=== PATIENT | female | born 1990 | race Caucasian/White ===

== ENCOUNTER 2016-12-15 14:09 | Emergency (ER) | payer BC ==
[2016-12-15 14:20] VITALS: BP 120/83
--- NOTE | 2016-12-15 14:29 | UC ---
Back Pain HPI - HPI Summary HPI Summary: pt reports she was moving heavy furniture and was climbing a low ladder and fell off and hit right side of low back X 4 days ago. Pt states she fell onto to right side of low back. She woke 12/12/16 with low back pain and stiffness and c/o right side sciatic pain. denies numbness, tingling loss of bowel or bladder control - History of Current Complaint Stated Complaint: LOWER BACK INJURY Time Seen by Provider: 12/15/16 14:11 Hx Obtained From: Patient Hx Last Menstrual Period: 11/16/14 ?: No Onset/Duration: Sudden Onset, Lasting Days Timing: Constant Severity Initially: Mild Severity Currently: Mild Character: Dull, Aching, Stiffness Aggravating: Movement Alleviating: Rest, Position Associated Signs And Symptoms: Positive: Negative - Allergies/Home Medications Allergies/Adverse Reactions: Allergies Allergy/AdvReac Type Severity Reaction Status Date / Time Amoxicillin Allergy Intermediate Rash Verified 12/15/16 14:20 Home Medications: Home Medications Norethindrone & Eth Estradiol [Nortrel 1/35 1-35 mg-Mcg] 1 tab PO DAILY [History Confirmed 12/15/16] PMH/Surg Hx/FS Hx/Imm Hx Previously Healthy: Yes Endocrine History Of: Denies: Diabetes, Thyroid Disease Cardiovascular History Of: Denies: Cardiac Disorders Respiratory History Of: Reports: Asthma GI/ History Of: Denies: Gastroesophageal Reflux, Ulcer, Gastrointestinal Bleed, Gall Bladder Disease, Kidney Stones, Diverticulitis, Renal Disease, Urosepsis Neurological History Of: Denies: TIA, CVA, Dementia, Seizures, Migraine Psychological History Of: Denies: Anxiety, Depression, Bipolar Disorder, Schizophrenia, Post Traumatic Stress Disorder Cancer History Of: Denies: Lung Cancer, Colorectal Cancer, Breast Cancer, Prostate Cancer, Cervical Cancer - Surgical History Surgical History: Yes Surgery Procedure, Year, and Place: C SECTION 2011 - Family History Known Family History: Positive: Other - positive for FMH for URI - Social History Lives: With Family Alcohol Use: None Substance Use Type: None Smoking Status (MU): Never Smoked Tobacco - Immunization History Most Recent Influenza Vaccination: FALL 2012 Review of Systems Constitutional: Negative Skin: Negative Eyes: Negative ENT: Negative Respiratory: Negative Cardiovascular: Negative Gastrointestinal: Negative Genitourinary: Negative Motor: Negative Neurovascular: Negative Musculoskeletal: Myalgia Neurological: Negative Psychological: Negative All Other Systems Reviewed And Are Negative: Yes Physical Exam Triage Information Reviewed: Yes Appearance: Pain Distress - mild Vital Signs: Initial Vital Signs Temp 98.2 F 12/15/16 14:16 Pulse 88 12/15/16 14:16 Resp 16 12/15/16 14:16 BP 120/83 12/15/16 14:16 Pulse Ox 100 12/15/16 14:16 Eye Exam: Normal Neck exam: Normal Respiratory Exam: Normal Cardiovascular Exam: Normal Musculoskeletal Exam: Other Musculoskeletal: Positive: ROM Limited @ - low back Neurological Exam: Normal Psychological Exam: Normal Skin Exam: Normal Back Pain Course/Dx - Differential Dx/Diagnosis Differential Diagnosis/HQI/PQRI: Herniated Disc, Strain, Other - low back strain Provider Diagnoses: low back strain Discharge - Discharge Plan Condition: Stable Disposition: HOME Prescriptions: Cyclobenzaprine TAB* [Flexeril 10 MG TAB*] 10 mg PO TID PRN #15 tab PRN Reason: Pain Ibuprofen TAB* [Motrin TAB* 800 MG] 800 mg PO Q8HR #15 tab predniSONE TAB* [Deltasone TAB*] 20 mg PO DAILY #4 tab Patient Education Materials: Acute Low Back Pain (ED), Lower Back Exercises (ED ) Forms: *Work Release Referrals: Nadine Elizondo MD [Primary Care Provider] - Additional Instructions: Please follow up with your PCP or return to clinic
== END 2016-12-15 14:46 | disposition home or self-care (01) ==
LOC: UCCORT 14:09
DX: S39.012A Strain of muscle, fascia and tendon of lower back, initial encounter (principal); W11.XXXA Fall on and from ladder, initial encounter; Y93.9 Activity, unspecified; Y92.9 Unspecified place or not applicable; Z88.1 Allergy status to other antibiotic agents
CPT/HCPCS: 99212; G0463

== ENCOUNTER 2016-12-21 08:03 | Emergency (ER) | payer BC ==
[2016-12-21 08:45] VITALS: BP 143/94
--- NOTE | 2016-12-21 09:34 | RAD ---
Indication: Traumatic injury/fall December 12, 2016 with continued back pain radiating to the LEFT leg. Comparison: No relevant prior exams available on the [facility] P[facility]. Technique: AP and lateral views lumbar sacral spine. Report: Normal lumbar lordosis without spondylolisthesis at any level. Variant unfused anterior superior ring apophysis at L4 without concern. Negative for fracture. Moderate L5-S1 disc space narrowing and facet joint osteoarthritis. The remaining disc spaces are normal. Unremarkable paraspinal soft tissue contours. IMPRESSION: L5-S1 degenerative spondylosis and facet joint osteoarthritis.
--- NOTE | 2016-12-21 13:09 | UC ---
Back Pain HPI - HPI Summary HPI Summary: MOVING FURNITURE ON 12/11/16 AND ALSO FELL FROM STEP LADDER ONTO BACK. SINCE 12/12 HAS HAD LOWER BACK PAIN THAT RADIATES DOWN LEGS. WAS CONFINED TO RIGHT SIDE , NOW IS INVOLVING LEFT SIDE TOO. NO LOSS OF CONTROL OF BLADDER OR BOWELS. - History of Current Complaint Chief Complaint: UCBackPain Stated Complaint: BACK PAIN INTO LEFT LEG Time Seen by Provider: 12/21/16 08:14 Hx Obtained From: Patient Hx Last Menstrual Period: 2016 Onset/Duration: Sudden Onset, Lasting Weeks, Worse Since - LAST FOUR DAYS Timing: Intermittent, Lasting Weeks Severity Initially: Moderate Severity Currently: Moderate Pain Intensity: 6 Pain Scale Used: 0-10 Numeric Character: Dull, Aching, Spasmodic Aggravating: Movement, Lifting, Bending, Walking Alleviating: Rest, Position Associated Signs And Symptoms: Positive: Pain with Weight Bearing. Negative: Weakness, Numbness, Tingling, Abdominal Pain, Flank Pain, Bladder Incontinence, Bowel Incontinence, Weight Loss - Risk Factors AAA Risk Factors: Negative TAD Risk Factors: Negative Cauda Equina Risk Factors: Negative Epidural Abscess Risk Factors: Negative - Allergies/Home Medications Allergies/Adverse Reactions: Allergies Allergy/AdvReac Type Severity Reaction Status Date / Time Amoxicillin Allergy Intermediate Rash Verified 12/15/16 14:20 Home Medications: Home Medications Ibuprofen TAB* [Motrin TAB* 800 MG] 800 mg PO Q8HR PRN 12/21/16 [History Confirmed 12/21/16] Norethindrone & Eth Estradiol [Radha] 1 tab PO QAM 12/21/16 [History Confirmed ] PMH/Surg Hx/FS Hx/Imm Hx Previously Healthy: Yes Endocrine History Of: Denies: Diabetes, Thyroid Disease Cardiovascular History Of: Denies: Cardiac Disorders Respiratory History Of: Reports: Asthma GI/ History Of: Denies: Gastroesophageal Reflux, Ulcer, Gastrointestinal Bleed, Gall Bladder Disease, Kidney Stones, Diverticulitis, Renal Disease, Urosepsis Neurological History Of: Denies: TIA, CVA, Dementia, Seizures, Migraine Psychological History Of: Denies: Anxiety, Depression, Bipolar Disorder, Schizophrenia, Post Traumatic Stress Disorder Cancer History Of: Denies: Lung Cancer, Colorectal Cancer, Breast Cancer, Prostate Cancer, Cervical Cancer - Surgical History Surgical History: Yes Surgery Procedure, Year, and Place: C SECTION 2011 - Family History Known Family History: Positive: Other - positive for FMH for URI Negative: Renal Disease - Social History Occupation: Employed Full-time Lives: With Family Alcohol Use: Rare Substance Use Type: None Smoking Status (MU): Never Smoked Tobacco - Immunization History Most Recent Influenza Vaccination: FALL 2012 Review of Systems Constitutional: Negative Skin: Negative Eyes: Negative ENT: Negative Respiratory: Negative Cardiovascular: Negative Gastrointestinal: Negative Genitourinary: Negative Motor: Negative Neurovascular: Negative Musculoskeletal: Arthralgia, Myalgia Neurological: Negative Psychological: Negative All Other Systems Reviewed And Are Negative: Yes Physical Exam Triage Information Reviewed: Yes Appearance: Well-Appearing, Well-Nourished, Pain Distress - MODERATE Vital Signs: Initial Vital Signs Temp 99.4 F 12/21/16 08:20 Pulse 119 12/21/16 08:20 Resp 16 12/21/16 08:20 BP 143/94 12/21/16 08:20 Vital Signs Reviewed: Yes Eye Exam: Normal ENT Exam: Normal ENT: Positive: Normal ENT inspection, Hearing grossly normal, Pharynx normal, TMs normal Dental Exam: Normal Neck exam: Normal Respiratory Exam: Normal Respiratory: Positive: Chest non-tender, Lungs clear, Normal breath sounds, No respiratory distress, No accessory muscle use Cardiovascular Exam: Normal Cardiovascular: Positive: RRR, No Murmur, Pulses Normal, Brisk Capillary Refill Abdominal Exam: Normal Abdomen Description: Positive: Nontender, No Organomegaly, Soft. Negative: CVA Tenderness (R), CVA Tenderness (L) Musculoskeletal: Positive: No Edema, Strength Limited @ - L SPINE, ROM Limited @ - L SPINE, Other: - POSITVE BILATERAL 15 DEGREE STRAIGHT LEG RAISE TESTING BOTH INDEX TO PAIN ON LEFT Neurological Exam: Normal Psychological Exam: Normal Skin Exam: Normal Back Pain Course/Dx - Differential Dx/Diagnosis Differential Diagnosis/HQI/PQRI: Arthritis, Herniated Disc, Renal Colic, Strain , Sprain Provider Diagnoses: DEGENERATIVE SPONDYLOSIS L5-S1;. FACET JOINT ARTHRITIS; LOW BACK STRAIN Discharge - Discharge Plan Condition: Stable Disposition: HOME Prescriptions: Metaxalone TAB* [Skelaxin TAB*] 800 mg PO TID #21 tab Patient Education Materials: Low Back Strain (ED), Degenerative Disc Disease ( ED) Forms: *Work Release Referrals: Nadine Elizondo MD [Primary Care Provider] - Additional Instructions: PHYSICAL THERAPY REFERRAL: You have been prescribed physical therapy. Treatments may include stretching, exercise, application of heat or cold, and other modalities. After an injury, PT can reduce swelling and pain. In recovery, PT is used to restore mobility and strength. Your specific treatment goals are: Reduction of Swelling (EGS, US, ice as needed) ___X__ Pain Reduction (EGS, US, ice as needed) ____X_ TENS Pack Fitting and Instruction Wound Hydrotherapy ___X__ Preservation of Mobility __X___ Restorationist of Mobility ___X__ Strength Restorationist ___X__ Work or Sports Hardening This instruction sheet also serves as your PHYSICAL THERAPY REFERRAL! Please take it with you to the therapist, so he/she will be aware of your diagnosis and treatment plan. You may see the physical therapist of your choice for these treatments, but may wish to check with your insurance to be sure the provider you select is covered. It's important to see the doctor to whom you have been referred for follow up.
== END 2016-12-21 10:14 | disposition home or self-care (01) ==
LOC: UCCORT 08:03
DX: S39.012A Strain of muscle, fascia and tendon of lower back, initial encounter (principal); W11.XXXA Fall on and from ladder, initial encounter; Y93.9 Activity, unspecified; Y92.9 Unspecified place or not applicable; M51.37 Other intervertebral disc degeneration, lumbosacral region; M47.817 Spondylosis without myelopathy or radiculopathy, lumbosacral region; R03.0 Elevated blood-pressure reading, without diagnosis of hypertension; Z88.1 Allergy status to other antibiotic agents
CPT/HCPCS: 72100; 99212; G0463

== ENCOUNTER 2017-04-17 07:43 | Emergency (ER) | payer BC ==
[2017-04-17 07:54] VITALS: BP 118/82
--- NOTE | 2017-04-17 08:04 | UC ---
Eye Complaint HPI - HPI Summary HPI Summary: complINT OF LEFT EYE REDNESS THAT STARTED YESTERDAY PURULENT DRAINGE compliant of left eye drainiagethat started yesterday purulent drainage matted in eyelashes when she wke up left eye itchiness denies vision chnages and eye pain son with conjunctivitis tried to use her son's eyedrops - can't recall what they are called - History of Current Complaint Chief Complaint: UCEye Stated Complaint: LEFT EYE COMPLAINT Time Seen by Provider: 04/17/17 07:57 Hx Obtained From: Patient Hx Last Menstrual Period: 11/16/14 - Risk Factors Penetrating Injury Risk Factor: Negative Globe Rupture Risk Factors: Negative Acute Glaucoma Risk Factors: Negative Optic Artery Occlusion Risk Factors: Negative - Allergies/Home Medications Allergies/Adverse Reactions: Allergies Allergy/AdvReac Type Severity Reaction Status Date / Time Amoxicillin Allergy Intermediate Rash Verified 04/17/17 07:49 PMH/Surg Hx/FS Hx/Imm Hx Previously Healthy: Yes Respiratory History: Asthma - Surgical History Surgical History: Yes Surgery Procedure, Year, and Place: C SECTION 2011. Tonsils - Family History Known Family History: Positive: Other - positive for FMH for URI Negative: Cardiac Disease, Hypertension, Renal Disease - Social History Occupation: Employed Full-time Lives: With Family Alcohol Use: Rare Substance Use Type: None Smoking Status (MU): Never Smoked Tobacco - Immunization History Most Recent Influenza Vaccination: NONE 2015 Most Recent Tetanus Shot: UTD Most Recent Pneumonia Vaccination: N/A Review of Systems Constitutional: Negative Skin: Negative Eyes: Drainage, Eye Redness ENT: Negative Respiratory: Negative Cardiovascular: Negative Gastrointestinal: Negative Genitourinary: Negative Motor: Negative Neurovascular: Negative Musculoskeletal: Negative Neurological: Negative Psychological: Negative All Other Systems Reviewed And Are Negative: Yes Physical Exam Triage Information Reviewed: Yes Appearance: No Pain Distress, Well-Nourished Vital Signs: Initial Vital Signs Temp 98 F 04/17/17 07:50 Pulse 89 04/17/17 07:50 Resp 18 04/17/17 07:50 BP 118/82 04/17/17 07:50 Pulse Ox 100 04/17/17 07:50 Vital Signs Reviewed: Yes Eyes: Positive: Conjunctiva Inflamed - left, Discharge ENT: Positive: Pharynx normal, TMs normal Neck: Positive: No Lymphadenopathy Respiratory: Positive: Lungs clear, Normal breath sounds, No respiratory distress, No accessory muscle use Cardiovascular: Positive: RRR, No Murmur, Pulses Normal, Brisk Capillary Refill Abdomen Description: Positive: Nontender, Soft Bowel Sounds: Positive: Present Musculoskeletal: Positive: No Edema Neurological: Positive: Alert Psychological Exam: Normal Skin Exam: Normal Eye Complaint Course/Dx - Differential Dx/Diagnosis Differential Diagnosis/HQI/PQRI: Conjunctivitis, Corneal Abrasion Provider Diagnoses: conjunctivitis-left Discharge - Discharge Plan Condition: Stable Disposition: HOME Prescriptions: Erythromycin OPHTH.OINT* [Ilotycin OPHTH.OINT*] 1 applic LEFT EYE TID #1 ophth.oint Patient Education Materials: Conjunctivitis (ED) Forms: *Work Release Referrals: Nadine Elizondo MD [Primary Care Provider] - Additional Instructions: CONJUNCTIVITIS What is Conjunctivitis? Conjunctivitis is redness and swelling of the conjunctiva, the thin transparent layer that lines the inner eyelid and covers the white part of the eye. The three main types of conjunctivitis are infectious, allergic, and chemical. The infectious type, commonly called "pink eye," is caused by a contagious virus or by bacteria. Your body's allergies to pollen, cosmetics, animals or fabrics often bring on allergic conjunctivitis. Irritants like air pollution, noxious fumes and chlorine in swimming pools may produce the chemical form. Symptoms Might Include: More tearing Eye pain Redness in the eyes Gritty feeling in the eyes Itching of the eye Blurred vision Sensitivity to light Crusts that form on the eyelid overnight Treatment Recommendations: Use eye drops or ointment as directed. Do not rub or touch your eyes. Wash your hands frequently. Use cool compresses to relieve pain and itching. Prevention: Do not share eye make-up. Replace eye make-up frequently. Do not share towels, washcloths, etc. Do not share eye drops. Do not wear contact lenses while you have conjunctivitis. Call Your Doctor or Return Here IF: Your symptoms worsen or do not improve in 3 to 4 days. You have problems with, or loss of, your vision. You have a significant increase in pain. You have any new symptoms that worry you.
== END 2017-04-17 08:17 | disposition home or self-care (01) ==
LOC: UCCORT 07:43
DX: H10.9 Unspecified conjunctivitis (principal)
CPT/HCPCS: 99212; G0463

== ENCOUNTER 2017-04-18 07:26 | Emergency (ER) | payer BC ==
[2017-04-18 07:34] VITALS: BP 123/82
--- NOTE | 2017-04-18 07:53 | UC ---
Eye Complaint HPI - HPI Summary HPI Summary: PINK EYES X 2 DAYS WAS SEEN AT THE [facility] FOR LEFT PINK EYE ONE DAY AGO , IS ON ERYTHROMYCINI OINT TODAY WOKE UP WITH RIGHT EYE REDNESS AND DISCHARGE NO EYE PAIN, NO CHANGE IN VISION - History of Current Complaint Chief Complaint: UCEye Stated Complaint: EYE COMPLAINT Time Seen by Provider: 04/18/17 07:39 Hx Obtained From: Patient Hx Last Menstrual Period: unknown, Birthcontol ?: No Onset/Duration: Gradual Onset, Lasting Days - 2, Still Present Timing: Constant Severity Initially: Moderate Severity Currently: Moderate Location of Injury: Conjunctiva - BILATERAL Character: Dull Aggravating Factor(s): Blinking Alleviating Factor(s): Nothing Associated Signs And Symptoms: Positive: Drainage (Clear), Drainage (Purulent). Negative: Photophobia, Vision Impairment Bilateral, Vision Impairment Right, Vision Impairment Left, Fever, Swelling - Allergies/Home Medications Allergies/Adverse Reactions: Allergies Allergy/AdvReac Type Severity Reaction Status Date / Time Amoxicillin Allergy Intermediate Rash Verified 04/18/17 07:34 PMH/Surg Hx/FS Hx/Imm Hx Previously Healthy: Yes - Surgical History Surgical History: Yes Surgery Procedure, Year, and Place: C SECTION 2011. Tonsils - Family History Known Family History: Positive: Other - positive for FMH for URI Negative: Cardiac Disease, Hypertension, Renal Disease - Social History Alcohol Use: Rare Substance Use Type: None Smoking Status (MU): Never Smoked Tobacco - Immunization History Most Recent Influenza Vaccination: NONE 2015 Most Recent Tetanus Shot: UTD Most Recent Pneumonia Vaccination: N/A Review of Systems Constitutional: Negative Skin: Negative Eyes: Drainage, Eye Redness ENT: Negative Respiratory: Negative Cardiovascular: Negative All Other Systems Reviewed And Are Negative: Yes Physical Exam Triage Information Reviewed: Yes Appearance: Well-Appearing, No Pain Distress, Well-Nourished Vital Signs: Initial Vital Signs Temp 98.9 F 04/18/17 07:29 Pulse 81 04/18/17 07:29 Resp 16 04/18/17 07:29 BP 123/82 04/18/17 07:29 Pulse Ox 100 04/18/17 07:29 Vital Signs Reviewed: Yes Eyes: Positive: Conjunctiva Inflamed - BILATERAL, Discharge - BILATERAL ENT: Positive: Normal ENT inspection, Hearing grossly normal, Pharynx normal Neck: Positive: Supple, Nontender, No Lymphadenopathy Respiratory: Positive: Chest non-tender, Lungs clear, Normal breath sounds Cardiovascular: Positive: RRR, No Murmur, Pulses Normal Psychological Exam: Normal Skin Exam: Normal Eye Complaint Course/Dx - Differential Dx/Diagnosis Provider Diagnoses: CONJUNCTIVITIS Discharge - Discharge Plan Condition: Stable Disposition: HOME Patient Education Materials: Conjunctivitis (ED) Forms: *Gen. Provider Communication, *Work Release Referrals: Nadine Elizondo MD [Primary Care Provider] - If Needed
== END 2017-04-18 07:52 | disposition home or self-care (01) ==
LOC: UCCORT 07:26
DX: H10.9 Unspecified conjunctivitis (principal)
CPT/HCPCS: 99211; G0463

== ENCOUNTER 2017-06-03 12:10 | Emergency (ER) | payer BC ==
[2017-06-03 12:41] VITALS: BP 121/81
--- NOTE | 2017-06-03 12:47 | UC ---
Complaint Female HPI - HPI Summary HPI Summary: 3 days of urinary pain and burning bloating and nausea - History Of Current Complaint Chief Complaint: UCGU Stated Complaint: URINARY Time Seen by Provider: 06/03/17 12:35 Hx Obtained From: Patient Hx Last Menstrual Period: unknown, Birthcontol ?: No Onset/Duration: Gradual Onset, Lasting Days - 3, Still Present Timing: Constant Severity Initially: Mild Severity Currently: Moderate Character: Burning Aggravating Factor(s): Urination Associated Signs And Symptoms: Positive: Nausea - Allergies/Home Medications Allergies/Adverse Reactions: Allergies Allergy/AdvReac Type Severity Reaction Status Date / Time Amoxicillin Allergy Intermediate Rash Verified 06/03/17 12:28 Home Medications: Home Medications Loratadine [Claritin 10 MG CAP] 1 cap DAILY 06/03/17 [History Confirmed 06/03/17 ] PMH/Surg Hx/FS Hx/Imm Hx Previously Healthy: No Respiratory History: Asthma - Surgical History Surgical History: Yes Surgery Procedure, Year, and Place: C SECTION 2011. Tonsils - Family History Known Family History: Positive: Other - positive for FMH for URI Negative: Cardiac Disease, Hypertension, Renal Disease - Social History Occupation: Employed Full-time Lives: With Family Alcohol Use: Rare Substance Use Type: None Smoking Status (MU): Never Smoked Tobacco - Immunization History Most Recent Influenza Vaccination: NONE 2015 Most Recent Tetanus Shot: UTD Most Recent Pneumonia Vaccination: N/A Review of Systems Constitutional: Chills Skin: Negative Eyes: Negative ENT: Negative Respiratory: Negative Cardiovascular: Negative Gastrointestinal: Negative Genitourinary: Dysuria, Frequency, Urgency Motor: Negative Neurovascular: Negative Musculoskeletal: Negative Neurological: Negative Psychological: Negative All Other Systems Reviewed And Are Negative: Yes Physical Exam Triage Information Reviewed: Yes Appearance: Well-Appearing, No Pain Distress, Well-Nourished Vital Signs Reviewed: Yes Eye Exam: Normal Eyes: Positive: Conjunctiva Clear ENT Exam: Normal ENT: Positive: Normal ENT inspection, Hearing grossly normal, Pharynx normal, TMs normal. Negative: Nasal congestion, Nasal drainage, Trismus, Muffled/ hoarse voice Dental Exam: Normal Neck exam: Normal Neck: Positive: Supple, Nontender Respiratory Exam: Normal Respiratory: Positive: Chest non-tender, No respiratory distress, No accessory muscle use Cardiovascular Exam: Normal Cardiovascular: Positive: RRR, Pulses Normal, Brisk Capillary Refill Abdominal Exam: Normal Abdomen Description: Positive: Nontender, No Organomegaly, Soft Bowel Sounds: Positive: Present Musculoskeletal Exam: Normal Musculoskeletal: Positive: Strength Intact, ROM Intact, No Edema Neurological Exam: Normal Neurological: Positive: Alert Psychological Exam: Normal Skin Exam: Normal Skin: Positive: rashes, breakdown Complaint Female Dx - Course Course Of Treatment: culture urine, macrobid, pyridium, follow with PCP - Differential Dx/Diagnosis Differential Diagnosis/HQI/PQRI: Bartholin Cyst, , Renal Colic, Sexually Transmitted Disease, Ureteral Stone, Urinary Tract Infection Provider Diagnoses: UTI Discharge - Discharge Plan Condition: Stable Disposition: HOME Prescriptions: Nitrofurantoin Monohyd Macro [Macrobid] 100 mg PO BID #20 cap Phenazopyridine TAB* [Pyridium 100 mg TAB*] 100 mg PO TID PRN #6 tab PRN Reason: urinary discomfort Patient Education Materials: Phenazopyridine (By mouth), Urinary Tract Infection in Women (ED) Referrals: Nadine Elizondo MD [Primary Care Provider] - If Needed
== END 2017-06-03 12:59 | disposition home or self-care (01) ==
LOC: UCCORT 12:10
DX: N39.0 Urinary tract infection, site not specified (principal); Z32.02 Encounter for pregnancy test, result negative
CPT/HCPCS: 81003; 84702; 99212; G0463

== ENCOUNTER 2017-10-03 08:52 | Emergency (ER) | payer BC ==
[2017-10-03 09:18] VITALS: BP 119/94
--- NOTE | 2017-10-03 09:49 | UC ---
Throat Pain/Nasal Asa HPI - HPI Summary HPI Summary: sore throat and cough x 1 day + high fever, chills, body aches - History of Current Complaint Chief Complaint: UCGeneralIllness Stated Complaint: ST/FEVER Time Seen by Provider: 10/03/17 09:17 Hx Obtained From: Patient Hx Last Menstrual Period: 09/16/17 Onset/Duration: Sudden Onset, Lasting Days - 1, Still Present Severity: Severe Cough: Nonproductive Associated Signs & Symptoms: Positive: Fever. Negative: Dysphagia, FB Sensation , Drooling, Wheezing, Hoarseness, Sinus Discomfort, Nasal Discharge - Allergies/Home Medications Allergies/Adverse Reactions: Allergies Allergy/AdvReac Type Severity Reaction Status Date / Time Amoxicillin Allergy Intermediate Rash Verified 10/03/17 09:13 Home Medications: Home Medications Acetaminophen [Acetaminophen Extra Stren] 1,000 mg PO Q6H PRN 10/03/17 [History Confirmed 10/03/17] Albuterol 2.5MG/3ML (0.083%)* [Ventolin 2.5 MG/3 ML NEB.TRISH*] 2.5 mg INH Q6H PRN 10/03/17 [History Confirmed 10/03/17] Cetirizine* [ZyrTEC 10 MG TAB*] 10 mg PO DAILY 10/03/17 [History Confirmed 10/03] Vitamin THERAPEUTIC TAB* [Theragran TAB*] 1 tab PO DAILY 10/03/17 [History Confirmed 10/03/17] PMH/Surg Hx/FS Hx/Imm Hx Previously Healthy: Yes - Surgical History Surgical History: Yes Surgery Procedure, Year, and Place: C SECTION 2011. Tonsils - Family History Known Family History: Positive: Other - positive for FMH for URI Negative: Cardiac Disease, Hypertension, Renal Disease - Social History Alcohol Use: Rare Substance Use Type: None Smoking Status (MU): Never Smoked Tobacco - Immunization History Most Recent Influenza Vaccination: Not the 2017/2017 Season Most Recent Tetanus Shot: UTD Most Recent Pneumonia Vaccination: N/A Review of Systems Constitutional: Fever, Chills, Fatigue Skin: Negative Eyes: Negative ENT: Sore Throat Respiratory: Cough Cardiovascular: Negative Gastrointestinal: Negative Is Patient Immunocompromised?: No All Other Systems Reviewed And Are Negative: Yes Physical Exam Triage Information Reviewed: Yes Appearance: Well-Appearing, No Pain Distress, Well-Nourished Vital Signs: Initial Vital Signs Temp 98.5 F 10/03/17 09:11 Pulse 102 10/03/17 09:11 Resp 16 10/03/17 09:11 BP 119/94 10/03/17 09:11 Pulse Ox 99 10/03/17 09:11 Vital Signs Reviewed: Yes Eyes: Positive: Conjunctiva Clear ENT: Positive: Normal ENT inspection, Hearing grossly normal, Pharyngeal erythema Neck exam: Normal Neck: Positive: Supple, Nontender, No Lymphadenopathy Respiratory Exam: Normal Respiratory: Positive: Chest non-tender, Lungs clear, Normal breath sounds, No respiratory distress Cardiovascular: Positive: Tachycardia Abdominal Exam: Normal Skin Exam: Normal Throat Pain/Nasal Course/Dx - Differential Dx/Diagnosis Provider Diagnoses: influenza Discharge - Discharge Plan Condition: Stable Disposition: HOME Prescriptions: Oseltamivir CAP* [Tamiflu CAP*] 75 mg PO BID #10 cap Patient Education Materials: Influenza (ED) Forms: *Work Release Referrals: Nadine Elizondo MD [Primary Care Provider] - If Needed
== END 2017-10-03 09:54 | disposition home or self-care (01) ==
LOC: UCCORT 08:52
DX: J11.1 Influenza due to unidentified influenza virus with other respiratory manifestations (principal); Z88.1 Allergy status to other antibiotic agents
CPT/HCPCS: 87502; 99212; G0463

== ENCOUNTER 2018-02-08 16:20 | Emergency (ER) | payer OTHER, BC ==
[2018-02-08 16:54] VITALS: BP 122/85
--- NOTE | 2018-02-08 17:24 | UC ---
Complaint Female HPI - HPI Summary HPI Summary: Pt c/o sudden onset of dysuria, frequency and urgency or urination that began this morning. Pt had a macrobid at home and took one this morning as well as a pyridium. Symptoms improved. - History Of Current Complaint Chief Complaint: UCGU Stated Complaint: URINARY Time Seen by Provider: 02/08/18 16:53 Hx Obtained From: Patient Hx Last Menstrual Period: 01/14/18 ?: No Onset/Duration: Sudden Onset, Lasting Hours Timing: Constant Severity Initially: Mild Severity Currently: Mild Pain Intensity: 4 Character: Dull, Burning Aggravating Factor(s): Urination Associated Signs And Symptoms: Positive: Negative - Risk Factors Ectopic Risk Factor: Negative Ovarian Torsion Risk Factor: Negative - Allergies/Home Medications Allergies/Adverse Reactions: Allergies Allergy/AdvReac Type Severity Reaction Status Date / Time amoxicillin Allergy Rash Verified 02/08/18 16:43 Home Medications: Home Medications Multivitamin [Once Daily] 1 each PO DAILY 02/08/18 [History Confirmed 02/08/18] PMH/Surg Hx/FS Hx/Imm Hx Previously Healthy: Yes - Surgical History Surgical History: Yes Surgery Procedure, Year, and Place: C SECTION 2011. Tonsils - Family History Known Family History: Positive: Other - positive for FMH for URI Negative: Cardiac Disease, Hypertension, Renal Disease - Social History Occupation: Employed Full-time Lives: With Family Alcohol Use: Occasionally Substance Use Type: None Smoking Status (MU): Never Smoked Tobacco Have You Smoked in the Last Year: No - Immunization History Most Recent Influenza Vaccination: Not the 2017/2017 Season Most Recent Tetanus Shot: UTD Most Recent Pneumonia Vaccination: N/A Review of Systems Constitutional: Negative Skin: Negative Eyes: Negative ENT: Negative Respiratory: Negative Cardiovascular: Negative Gastrointestinal: Negative Genitourinary: Dysuria, Frequency, Urgency Motor: Negative Neurovascular: Negative Musculoskeletal: Negative Neurological: Negative Psychological: Negative Is Patient Immunocompromised?: No All Other Systems Reviewed And Are Negative: Yes Physical Exam Triage Information Reviewed: Yes Appearance: Well-Appearing Vital Signs: Initial Vital Signs Temp 99.8 F 02/08/18 16:49 Pulse 82 02/08/18 16:49 Resp 20 02/08/18 16:49 BP 122/85 02/08/18 16:49 Pulse Ox 100 02/08/18 16:49 Vital Signs Reviewed: Yes Eye Exam: Normal ENT Exam: Normal ENT: Positive: Hearing grossly normal Neck exam: Normal Respiratory Exam: Normal Cardiovascular Exam: Normal Abdominal Exam: Normal Abdomen Description: Positive: Nontender Musculoskeletal Exam: Normal Neurological Exam: Normal Psychological Exam: Normal Skin Exam: Normal Complaint Female Dx - Differential Dx/Diagnosis Differential Diagnosis/HQI/PQRI: Urinary Tract Infection Provider Diagnoses: Dysuria Discharge - Sign-Out/Discharge Documenting (check all that apply): Discharge/Admit/Transfer - Discharge Plan Condition: Stable Disposition: HOME Prescriptions: Phenazopyridine TAB* [Pyridium 100 mg TAB*] 100 mg PO Q8H #3 tab Sulfamethox/Trimethoprim DS* [Bactrim DS 800/160 TAB*] 1 tab PO Q12H #10 tab Patient Education Materials: Dysuria (ED) Referrals: Nadine Elizondo MD [Primary Care Provider] - If Needed - Billing Disposition and Condition Condition: STABLE Disposition: HOME
== END 2018-02-08 17:36 | disposition home or self-care (01) ==
LOC: UCCORT 16:20
DX: R30.0 Dysuria (principal); Z88.0 Allergy status to penicillin
CPT/HCPCS: 81003; 84702; 87086; 99212; G0463

== ENCOUNTER 2018-07-23 08:07 | Emergency (ER) | payer BC, OTHER ==
[2018-07-23 08:50] VITALS: BP 134/89
--- NOTE | 2018-07-23 09:08 | ED ---
Respiratory - HPI Summary HPI Summary: 28 yr old with runny nose, post nasal drip, bilateral ear pain, and symptoms for a week. She is also on inhalers for asthma and has had to use them more this week due to coughing. She denies fever, chills. She works in a [employer] and many are sick around her. Her son now has URI symptoms as well. - History of Current Complaint Chief Complaint: UCGeneralIllness Stated Complaint: SORE THROAT,CONGESTION,EARS Time Seen by Provider: 07/23/18 08:41 Pain Intensity: 5 - Allergy/Home Medications Allergies/Adverse Reactions: Allergies Allergy/AdvReac Type Severity Reaction Status Date / Time amoxicillin Allergy Rash Verified 07/23/18 08:51 PMH/Surg Hx/FS Hx/Imm Hx Endocrine/Hematology History: Denies: Hx Diabetes, Hx Thyroid Disease Respiratory History: Reports: Hx Asthma Denies: Hx Lung Cancer GI History: Denies: Hx Gall Bladder Disease, Hx Gastrointestinal Bleed, Hx Ulcer, Hx Urosepsis History: Denies: Hx Kidney Stones, Hx Renal Disease Neurological History: Denies: Hx Dementia, Hx Migraine, Hx Seizures, Hx Transient Ischemic Attacks (TIA) Psychiatric History: Denies: Hx Anxiety, Hx Depression, Hx Schizophrenia, Hx Bipolar Disorder - Surgical History Surgery Procedure, Year, and Place: C SECTION 2011. Tonsils. UTERINE CYST REMOVED Infectious Disease History: No Infectious Disease History: Denies: Hx Clostridium Difficile, Hx Hepatitis, Hx Human Immunodeficiency Virus (HIV), Hx of Known/Suspected MRSA, Hx Shingles, Hx Tuberculosis, Hx Known/ Suspected VRE, Hx Known/Suspected VRSA, History Other Infectious Disease, Traveled Outside the [place] in Last 30 Days - Family History Known Family History: Positive: Other - positive for FMH for URI Negative: Cardiac Disease, Hypertension, Renal Disease - Social History Occupation: Employed Full-time Lives: With Family Alcohol Use: Occasionally Substance Use Type: Reports: None Smoking Status (MU): Never Smoked Tobacco Have You Smoked in the Last Year: No Review of Systems Constitutional: Negative Positive: Nasal Discharge All Other Systems Reviewed And Are Negative: Yes Physical Exam Triage Information Reviewed: Yes Vital Signs On Initial Exam: Initial Vitals Temp Pulse Resp BP Pulse Ox 97.7 F 86 16 134/89 99 07/23/18 08:46 07/23/18 08:46 07/23/18 08:46 07/23/18 08:46 07/23/18 08:46 Vital Signs Reviewed: Yes Appearance: Positive: Well-Appearing, No Pain Distress Skin: Positive: Warm, Skin Color Reflects Adequate Perfusion Head/Face: Positive: Normal Head/Face Inspection Eyes: Positive: EOMI ENT: Positive: Pharynx normal, Nasal congestion, Nasal drainage, TM red - right red with effusion Neck: Positive: Nontender Respiratory/Lung Sounds: Positive: Clear to Auscultation, Breath Sounds Present Cardiovascular: Positive: RRR. Negative: Murmur Abdomen Description: Negative: Distended Musculoskeletal: Positive: Strength/ROM Intact Neurological: Positive: Sensory/Motor Intact, Alert, Oriented to Person Place, Time, CN Intact II-III Psychiatric: Positive: Normal - Lady Coma Scale Best Eye Response: 4 - Spontaneous Best Motor Response: 6 - Obeys Commands Best Verbal Response: 5 - Oriented Coma Scale Total: 15 Diagnostics - Vital Signs Vital Signs Temp Pulse Resp BP Pulse Ox 07/23/18 08:46 97.7 F 86 16 134/89 99 - Laboratory Lab Statement: Any lab studies that have been ordered have been reviewed, and results considered in the medical decision making process. Disposition - Course Course Of Treatment: 28 yr old female with URI symptoms, Right OM, and increased MDI use. Will rx with biaxin and prednisone. - Diagnoses Provider Diagnoses: Otitis media, Asthmatic bronchitis, Elevated blood pressure reading Discharge - Sign-Out/Discharge Documenting (check all that apply): Patient Departure All imaging exams completed and their final reports reviewed: No Studies - Discharge Plan Condition: Good Disposition: HOME Prescriptions: Clarithromycin TAB* [Biaxin 500 MG TAB*] 500 mg PO BID #20 tab predniSONE TAB* [Deltasone 20 MG TAB*] 40 mg PO DAILY #8 tab Patient Education Materials: Ear Infection (ED), Bronchospasm (ED) Forms: *Work Release Referrals: Nadine Elizondo MD [Primary Care Provider] - 2 Days - Billing Disposition and Condition Condition: GOOD Disposition: Home
== END 2018-07-23 09:15 | disposition home or self-care (01) ==
LOC: UCCORT 08:07
DX: H66.93 Otitis media, unspecified, bilateral (principal); J45.909 Unspecified asthma, uncomplicated; R03.0 Elevated blood-pressure reading, without diagnosis of hypertension; Z88.1 Allergy status to other antibiotic agents
CPT/HCPCS: 84702; 99212; G0463

== ENCOUNTER 2018-11-08 12:23 | Emergency (ER) | payer BC, OTHER ==
[2018-11-08 14:34] VITALS: BP 131/86
--- NOTE | 2018-11-08 14:45 | UC ---
Respiratory Complaint HPI - HPI Summary HPI Summary: 28 yo female with hx of asthma presents with 1 day hx of cough/congestion/sore throat/BOWEN and myalgias no wheezing no CP or SOB - History of Current Complaint Chief Complaint: UCRespiratory Stated Complaint: ST,CONGESTION Time Seen by Provider: 11/08/18 14:30 Hx Obtained From: Patient Hx Last Menstrual Period: 10/21/18 Onset/Duration: Gradual Onset, Lasting Hours Timing: Constant Severity Initially: Mild Severity Currently: Moderate Pain Intensity: 6 Pain Scale Used: 0-10 Numeric Character: Cough: Nonproductive Aggravating Factors: Nothing Associated Signs And Symptoms: Positive: URI, Nasal Congestion, Sinus Discomfort - Allergies/Home Medications Allergies/Adverse Reactions: Allergies Allergy/AdvReac Type Severity Reaction Status Date / Time amoxicillin Allergy Rash Verified 11/08/18 14:31 PMH/Surg Hx/FS Hx/Imm Hx Previously Healthy: Yes Respiratory History: Asthma - Surgical History Surgical History: Yes Surgery Procedure, Year, and Place: C SECTION 2011. Tonsils. UTERINE CYST REMOVED - Family History Known Family History: Positive: Hypertension, Diabetes, Other - positive for FMH for URI Negative: Cardiac Disease, Renal Disease - Social History Alcohol Use: Occasionally Substance Use Type: None Smoking Status (MU): Never Smoked Tobacco Have You Smoked in the Last Year: No - Immunization History Most Recent Influenza Vaccination: Not the 2016/2017 Season Most Recent Tetanus Shot: UTD Most Recent Pneumonia Vaccination: N/A Review of Systems All Other Systems Reviewed And Are Negative: Yes Constitutional: Positive: Fever, Chills, Fatigue Skin: Positive: Negative Eyes: Positive: Negative ENT: Positive: Sore Throat, Nasal Discharge, Sinus Congestion, Sinus Pain/ Tenderness Respiratory: Positive: Cough Cardiovascular: Positive: Negative Gastrointestinal: Positive: Negative Genitourinary: Positive: Negative Motor: Positive: Negative Neurovascular: Positive: Negative Musculoskeletal: Positive: Myalgia Neurological: Positive: Headache Psychological: Positive: Negative Physical Exam Triage Information Reviewed: Yes Appearance: Well-Appearing, No Pain Distress, Well-Nourished Vital Signs: Initial Vital Signs Temp 97.3 F 11/08/18 14:31 Pulse 86 11/08/18 14:31 Resp 16 11/08/18 14:31 BP 131/86 11/08/18 14:31 Pulse Ox 100 11/08/18 14:31 Vital Signs Reviewed: Yes Eyes: Positive: Conjunctiva Clear ENT: Positive: Hearing grossly normal, Nasal congestion, Nasal drainage, TMs normal, Sinus tenderness, Uvula midline. Negative: Tonsillar swelling, Tonsillar exudate, Trismus, Muffled voice, Hoarse voice Neck: Positive: Supple, Nontender, No Lymphadenopathy Respiratory: Positive: Lungs clear, Normal breath sounds, No respiratory distress, No accessory muscle use Cardiovascular: Positive: RRR, No Murmur Musculoskeletal: Positive: ROM Intact, No Edema Neurological: Positive: Alert Psychological Exam: Normal Skin Exam: Normal UC Diagnostic Evaluation - Laboratory O2 Sat by Pulse Oximetry: 100 - normal/not hypoxic Diagnostic Studies Comment: influenza (-) Respiratory Course/Dx - Differential Dx/Diagnosis Provider Diagnosis: Influenza-like illness Discharge - Sign-Out/Discharge Documenting (check all that apply): Patient Departure All imaging exams completed and their final reports reviewed: No Studies - Discharge Plan Condition: Stable Disposition: HOME Prescriptions: Benzonatate CAP* [Tessalon CAP*] 100 - 200 mg PO TID PRN #28 cap PRN Reason: Cough Oseltamivir CAP* [Tamiflu CAP*] 75 mg PO BID #10 cap Patient Education Materials: Influenza (ED) Forms: *Work Release Additional Instructions: Your flu test was negative Because the flu test is not an overly sensitive test and because you have asthma I think we should treat you for possible flu recheck in 4-5 days if not better or sooner for worsening symptoms rest fluids tylenol or advil - Billing Disposition and Condition Condition: STABLE Disposition: Home
[2018-11-08 14:59] LABS: Influenza A Molecular NEGATIVE (Negative); Influenza B Molecular NEGATIVE (Negative)
== END 2018-11-08 15:17 | disposition home or self-care (01) ==
LOC: UCCORT 12:23
DX: J11.1 Influenza due to unidentified influenza virus with other respiratory manifestations (principal); J45.909 Unspecified asthma, uncomplicated; Z88.0 Allergy status to penicillin
CPT/HCPCS: 99212; G0463

== ENCOUNTER 2019-03-19 14:39 | Emergency (ER) | payer BC ==
[2019-03-19 14:59] VITALS: BP 135/95
--- NOTE | 2019-03-19 15:29 | UC ---
Headache HPI - HPI Summary HPI Summary: pt is c/o a headache since yesterday. it began while at work, pt sits at a computer. she describes it as a constant tightness across the back of her head with some dizziness, nausea and being light headed. she self tx with IB 400mg yesterday and tylenol this am with no relief. it is not an abrupt or worst headache. she denies any injury, fever and current / recent illness. she has had similar BOWEN's in the past. - History Of Current Complaint Chief Complaint: UCHeadache Stated Complaint: HEADACHE LIGHTHEADED DIZZY Time Seen by Provider: 03/19/19 15:09 Hx Obtained From: Patient Hx Last Menstrual Period: 02/18/19 Pain Intensity: 6 Aggravating Factor(s): Nothing - Risk Factors SAH Risk Factors: Negative Meningitis Risk Factors: Negative SDH Risk Factors: Negative - Allergies/Home Medications Allergies/Adverse Reactions: Allergies Allergy/AdvReac Type Severity Reaction Status Date / Time amoxicillin Allergy Intermediate Rash Verified 03/19/19 14:54 Home Medications: Home Medications Cetirizine* [ZyrTEC 10 MG TAB*] 10 mg PO DAILY 03/19/19 [History Confirmed 03/19] Cyanocobalamin TAB* [Vitamin B12 TAB*] 1 tab DAILY 03/19/19 [History Confirmed 03/19/19] Folic Acid TAB* [Folvite TAB*] 1 tab DAILY 03/19/19 [History Confirmed 03/19/19] Norethindrone-Ethinyl Estrad [Nortrel 0.5/35 (28) 0.5-35 mg-Mcg] 1 tab PO DAILY 03/19/19 [History Confirmed 03/19/19] PMH/Surg Hx/FS Hx/Imm Hx Previously Healthy: Yes - Surgical History Surgical History: Yes Surgery Procedure, Year, and Place: C SECTION 2011. Tonsils. UTERINE CYST REMOVED - Family History Known Family History: Positive: Hypertension, Diabetes, Other - positive for FMH for URI Negative: Cardiac Disease, Renal Disease - Social History Occupation: Employed Full-time Alcohol Use: Occasionally Substance Use Type: None Smoking Status (MU): Never Smoked Tobacco Have You Smoked in the Last Year: No - Immunization History Most Recent Influenza Vaccination: Not the 2017/2018 Season Most Recent Tetanus Shot: UTD Most Recent Pneumonia Vaccination: N/A Review of Systems All Other Systems Reviewed And Are Negative: Yes Constitutional: Negative: Fever, Chills Eyes: Negative: Blurred Vision, Diplopia, Photophobia Gastrointestinal: Positive: Nausea. Negative: Vomiting Neurological: Positive: Headache. Negative: Paresthesia, Numbness Physical Exam Triage Information Reviewed: Yes Appearance: Well-Appearing Vital Signs: Initial Vital Signs Temp 97.1 F 03/19/19 14:55 Pulse 78 03/19/19 14:55 Resp 16 03/19/19 14:55 BP 135/95 03/19/19 14:55 Pulse Ox 100 03/19/19 14:55 Vital Signs Reviewed: Yes Eyes: Positive: Conjunctiva Clear, Other: - PERRL, EOMI. ENT: Positive: Pharynx normal, TMs normal. Negative: Nasal congestion, Nasal drainage Neck: Positive: Supple, Nontender, No Lymphadenopathy. Negative: Nuchal Rigidity Respiratory: Positive: Lungs clear, Normal breath sounds Cardiovascular: Positive: RRR, No Murmur Abdomen Description: Positive: Nontender, No Organomegaly, Soft Bowel Sounds: Positive: Present Musculoskeletal: Positive: ROM Intact Neurological: Positive: Other: - A&Ox3. CN 2-12 intact. 5/5 strength, 2+ reflexes and sensation intact x4. steady gait. performs rapids alternating moves and heel toe walks with ease. Psychological: Positive: Age Appropriate Behavior Skin Exam: Normal Diagnostics - Laboratory Lab Results: hcg=neg Re-Evaluation - Re-Evaluation First Eval Re-Evaluation Time: 16:29 Change: Improved - BOWEN resolved Headache Course/Dx - Differential Dx/Diagnosis Differential Diagnosis/HQI/PQRI: Other - not abrupt or worst BOWEN to suggest bleed. no fever or illness to suggest infection. neuro exam is reassuring plus pt has had similar headaches in the past. Provider Diagnosis: Headache Discharge - Sign-Out/Discharge Documenting (check all that apply): Patient Departure All imaging exams completed and their final reports reviewed: No Studies - Discharge Plan Condition: Stable Disposition: HOME Patient Education Materials: Acute Headache (DC) Forms: *Work Release Referrals: Glenn Bravo MD [Medical Doctor] - As Soon As Possible - Billing Disposition and Condition Condition: STABLE Disposition: Home
[2019-03-19] MEDS ORDERED: Ibuprofen ADULT LIQ* 600 MG/30 ML UDC PO ONE (15:34)
[2019-03-19] MEDS ORDERED: Ondansetron ODT TAB* 4 MG PO ONE (15:35)
== END 2019-03-19 16:36 | disposition home or self-care (01) ==
LOC: UCCORT 14:39
DX: R51 Headache (principal)
CPT/HCPCS: 84702; 99212; A9270-GY; G0463

== ENCOUNTER 2019-09-30 07:50 | Emergency (ER) | payer BC ==
[2019-09-30 07:59] VITALS: BP 135/94
--- NOTE | 2019-09-30 08:28 | UC ---
Throat Pain/Nasal Asa HPI - HPI Summary HPI Summary: Pt presents with c/o nasal congestion, subjective fever, body aches, cough, sinus pressure and pain X 10 days. - History of Current Complaint Chief Complaint: UCGeneralIllness Stated Complaint: ST Time Seen by Provider: 09/30/19 08:20 Hx Obtained From: Patient Hx Last Menstrual Period: 09/01/19 ?: No Onset/Duration: Gradual Onset, Lasting Days, Still Present, Worse Since - onset Severity: Moderate Pain Intensity: 5 Cough: Productive Associated Signs & Symptoms: Positive: Sinus Discomfort, Nasal Discharge, Fever - Epiglottits Risk Factors Epiglottis Risk Factors: Negative - Allergies/Home Medications Allergies/Adverse Reactions: Allergies Allergy/AdvReac Type Severity Reaction Status Date / Time amoxicillin Allergy Intermediate Rash Verified 09/30/19 07:55 PMH/Surg Hx/FS Hx/Imm Hx Previously Healthy: Yes Respiratory History: Asthma - Surgical History Surgical History: Yes Surgery Procedure, Year, and Place: C-seciton 2011. Tonsilectomy. utertine cyst removed - Family History Known Family History: Positive: Hypertension, Diabetes, Other - positive for FMH for URI Negative: Cardiac Disease, Renal Disease - Social History Occupation: Employed Full-time Alcohol Use: Occasionally Substance Use Type: None Smoking Status (MU): Never Smoked Tobacco Have You Smoked in the Last Year: No - Immunization History Most Recent Influenza Vaccination: Not the 2017/2017 Season Most Recent Tetanus Shot: UTD Most Recent Pneumonia Vaccination: N/A Vaccination Up to Date: No Review of Systems All Other Systems Reviewed And Are Negative: Yes Constitutional: Positive: Fever, Chills Skin: Positive: Negative Eyes: Positive: Negative ENT: Positive: Ear Ache, Nasal Discharge, Sinus Congestion, Sinus Pain/ Tenderness Respiratory: Positive: Cough Cardiovascular: Positive: Negative Gastrointestinal: Positive: Negative Genitourinary: Positive: Negative Motor: Positive: Negative Musculoskeletal: Positive: Negative Neurological: Positive: Negative Psychological: Positive: Negative Is Patient Immunocompromised?: No Physical Exam Triage Information Reviewed: Yes Appearance: Ill-Appearing Vital Signs: Initial Vital Signs Temp 99 F 09/30/19 07:56 Pulse 91 09/30/19 07:56 Resp 15 09/30/19 07:56 BP 135/94 09/30/19 07:56 Pulse Ox 99 09/30/19 07:56 Vital Signs Reviewed: Yes Eye Exam: Normal ENT: Positive: Nasal congestion, TM dull, Sinus tenderness - left side Dental Exam: Normal Neck exam: Normal Respiratory Exam: Normal Cardiovascular Exam: Normal Musculoskeletal Exam: Normal Neurological Exam: Normal Psychological Exam: Normal Skin Exam: Normal Throat Pain/Nasal Course/Dx - Differential Dx/Diagnosis Differential Diagnosis/HQI/PQRI: Influenza, Sinusitis, URI Provider Diagnosis: Sinusitis Discharge ED - Sign-Out/Discharge Documenting (check all that apply): Patient Departure All imaging exams completed and their final reports reviewed: No Studies - Discharge Plan Condition: Stable Disposition: HOME Prescriptions: Azithromycin TAB* [Zithromax TAB (Z-RICARDO) 250 mg #6 tabs] 2 tab PO .TODAY, THEN 1 DAILY #1 ricardo Guaifenesin/Pseudo 600/60(NF) [Mucinex D 600/60 (NF)] 1 tab PO Q12H #10 tab Patient Education Materials: Sinusitis (ED) Referrals: [facility] [place] [facility] [Outside] No Primary Care Phys,NOPCP [Primary Care Provider] - Additional Instructions: Please follow up with your PCP as needed. - Billing Disposition and Condition Condition: STABLE Disposition: Home
== END 2019-09-30 08:35 | disposition home or self-care (01) ==
LOC: UCCORT 07:50
DX: J32.9 Chronic sinusitis, unspecified (principal); Z88.0 Allergy status to penicillin
CPT/HCPCS: 99212; G0463